=== PATIENT | female | born 1950 | race Caucasian/White ===

== ENCOUNTER 2016-12-23 21:01 | Emergency (ER) | payer MEDICARE, OTHER ==
[~2016-12-23] VITALS: Ht 157.5 cm; Wt 80.5 kg
[~2016-12-23 21:01] MED LIST: ASPI81TA2 PO; CLOP75TA14 PO; COR625 PO; GLU500 PO; NITR0.4T SL; OMEP20TA86 PO; SMV40T PO; ZES10 PO; ZLP10T PO
[2016-12-23 21:07] VITALS: BP 161/68; PULSE 81; RESP 16; O2SAT 100
[2016-12-23 21:39] LABS: BASOPHILS % (AUTO) 0.5 % (0-3); EOSINOPHILS % (AUTO) 2.3 % (0-5); MONOCYTES % (AUTO) 9.4 % (4-12); Mean Corpuscular Hemoglobin 25.2 pg (27.0-35.0); Mean Corpuscular Volume 79.2 fL (81-100); NEUTROPHILS % (AUTO) 40.7 % (40-74); Platelet Count 300 bil/L (150-400)
--- NOTE | 2016-12-23 21:44 | ED.REPORT ---
HPI-General Illness Date of Service Dec 23, 2016 ED Provider: Yasmany Lino MD Patient is a 66 year old female with a history of asthma, congestive heart failure, hypertension, hiatal hernia with GERD, and coronary artery disease with prior MA and cardiac stenting who presents to the ED complaining of increased shortness of breath that has been ongoing for some time, worse in severity over the past 2 weeks. Two weeks ago the patient had a severe asthma attack after she was exposed to horse dander at the [employer]. The patient had a similar reaction a year ago, which improved with Benadryl. Since that she patient reports a "hacking" cough and increased shortness of breath. She has an inhaler at home, which has provided her with mild relief. Patient presents to the ED tonight due to concern for congestive heart failure. The patient states that she has been experiencing dyspnea on exertion. Her states that she can walk comfortably prior to breakfast, but later in the day she is barely able to walk without becoming short of breath. The patient feels as if she is unable to take a deep breath. Patient denies a productive cough. Patient denies any chest pain, even with ambulating. The patient denies having chest pain prior to She does admit to having acid reflux. Patient denies increased swelling in her legs. Nursing Notes Stated Complaint: SOB/CHF Chief Complaint: Respiratory Distress Nursing Notes Reviewed: Yes Allergies: Coded Allergies: amoxicillin (Verified Allergy, Intermediate, Rash, 12/23/16) Cephalosporins (Verified Allergy, Unknown, Rash, 12/23/16) Sulfa (Sulfonamide Antibiotics) (Verified Allergy, Unknown, Rash, 12/23/16) codeine (Verified Adverse Reaction, Intermediate, Nausea,Vomiting, 12/23/16) Scheduled Albuterol HFA (Proair HFA) 8.5 Gm Hfa.aer.ad 2 PUFFS INHALATION Q4H Aspirin-Expunged Drug, Do Not Renew! (Aspirin-Expunged Drug, Do Not Renew!) 81 Mg Tablet 81 MG PO DAILY Carvedilol-Expunged Drug, Do Not Renew! (Carvedilol-Expunged Drug, Do Not Renew! ) 6.25 Mg Tablet 6.25 MG PO BID Clopidogrel-Expunged Drug, Do Not Renew! (Plavix-Expunged Drug, Do Not Renew!) 75 Mg Tablet 75 MG PO DAILY Lisinopril-Expunged Drug, Do Not Renew! (Lisinopril-Expunged Drug, Do Not Renew! ) 10 Mg Tablet 10 MG PO DAILY Metformin-Expunged Drug, Do Not Renew! (Metformin-Expunged Drug, Do Not Renew!) 500 Mg Tablet 500 MG PO BID Nitroglycerin-Expunged Drug, Do Not Renew! (Nitroglycerin SL-Expunged Drug, Do Not Renew!) 0.4 Mg Tab.subl 0.4 MG SL PRN Omeprazole-Expunged Drug, Do Not Renew! (Omeprazole-Expunged Drug, Do Not Renew! ) 20 Mg Tablet.dr 20 MG PO BID Prednisone (PredniSONE) 20 Mg Tablet 40 MG PO DAILY Simvastatin-Expunged Drug, Choose New Med! (Simvastatin-Expunged Drug, Choose New Med!) 40 Mg Tablet 40 MG PO HS INPATIENT MAX DOSE 40 MG Zolpidem-Expunged Drug, Do Not Renew! (Zolpidem-Expunged Drug, Do Not Renew!) 10 Mg Tab 10 MG PO HS For Elderly/Debilitated patients and hepatic insufficiency recommended dose is 5 mg. General Time Seen by MD: 21:43 Chief Complaint Breathing problem (shortness of breath) Hx Obtained From: Patient Arrived By: Walk-in Sudden in Onset?: No Onset Occurred: More than a week ago... (worse today) Symptom Duration: Waxes and wanes Severity: Current: No pain currently Severity: Maximum: No pain Recent Healthcare: No recent doctor visit, No recent hospitalization Similar Sx Previous: Yes Past Medical History Past Medical History coronary artery disease with prior MA (unknown age) and cardiac stenting (2011) hiatal hernia atrial fibrillationw with RVR Reports: Asthma, Congestive heart failure, Diabetes mellitus, GERD, Hyperlipidemia Past Surgical History cardiac stent to the LAD, 2012 breast biopsies D&C Smoking History Unknown if Ever Smoker Social History Other Social History: Good social support, , Local resident Ambulatory Status Independent Review of Systems Full Review of Systems Respiratory: Reports: Dyspnea on exertion, Non-productive cough, Shortness of breath, Denies: Prod cough, clear, Prod cough, yellow Cardiovascular: Reports: Dyspnea on exertion, Denies: Chest pain Musculoskeletal: Denies: Extremity swelling Complete sys rev & neg: except as marked. Physical Exam Vital Signs Vital Signs Date Time Temp Pulse Resp B/P Pulse Ox O2 Delivery O2 Flow Rate FiO2 12/23/16 23:09 65 14 133/44 98 Room Air 12/23/16 22:46 67 16 97 Room Air 8 12/23/16 21:07 36.7 81 16 161/68 100 Room Air Initial VS: Reviewed Head / Eyes: Atraumatic, Normocephalic, PERRL ENT: Conjunctiva normal, No scleral icterus Skin: Warm, Dry, No cyanosis Neurologic: Alert, Oriented, Nonfocal Psychiatric: Mood/affect normal, Behavior normal, Normal thought content General/Constitutional: Awake, Alert, No acute distress Neck: Supple, No JVD Respiratory / Chest: Breath sounds NL, Breath sounds = bilat, No respiratory distress, No rales, No rhonchi, No wheezing breathing at the top of her respiratory cycle, unable to get a deep breath Cardiovascular: Heart rate NL, Regular rhythm, No gallop, No murmurs, No rubs, Cap refill not delayed, Peripheral circulation NL Abdomen: Soft, Non-tender, No distention Upper Extremities Upper Extremity / MS: No swelling, No edema Lower Extremity / Pelvis / MS: No swelling, Neurologic intact, Vascular intact , No edema Interpretation & Diagnostics Lab Results Interpretation Result Diagram: 12/23/16210912/23/162109 Test 12/23/16 21:10 White Blood Count 6.0th/mm3 (3.8-10.1) Red Blood Count 4.33mil/mm3 (3.90-5.20) Hemoglobin 10.9g/dL (12.0-15.6) Hematocrit 34.3% (35.0-46.0) Mean Corpuscular Volume 79.2fL (81-100) Mean Corpuscular Hemoglobin 25.2pg (27.0-35.0) Mean Corpuscular Hemoglobin Concent 31.8% (32.0-37.0) Red Cell Distribution Width 15.6% (12.3-15.4) Platelet Count 300bil/L (150-400) Neutrophils (%) (Auto) 40.7% (40-74) Lymphocytes (%) (Auto) 46.9% (14-46) Monocytes (%) (Auto) 9.4% (4-12) Eosinophils (%) (Auto) 2.3% (0-5) Basophils (%) (Auto) 0.5% (0-3) Hold Purple Top Tube Received (Received) Hold Blue Top Tube Received (Received) Sodium Level 130mEq/L (134-144) Potassium Level 4.1mEq/L (3.5-5.2) Chloride Level 95mEq/L (97-108) Carbon Dioxide Level 23mmol/L (18-29) Blood Urea Nitrogen 16mg/dL (8-27) Creatinine 0.71mg/dL (0.57-1.00) Estimat Glomerular Filtration Rate 118mL/min (>59) Glucose Level 155mg/dL (60-99) Calcium Level 9.1mg/dL (8.5-10.1) Iron Level 34ug/dL (35-150) Total Iron Binding Capacity 349ug/dL (250-450) Percent Iron Saturation 10%sat (15-50) Unsaturated Iron Binding 314.9ug/dL Total Bilirubin 0.2mg/dL (0.0-1.2) Aspartate Amino Transf (AST/SGOT) 28U/L (0-50) Alanine Aminotransferase (ALT/SGPT) 30U/L (0-32) Alkaline Phosphatase 65U/L (25-165) Troponin T 0.010ug/L (0.0-0.011) Pro-B-Type Natriuretic Peptide 282.5pg/mL (0-301) Total Protein 8.4g/dL (6.4-8.4) Albumin 4.1g/dL (3.4-5.0) Hold Mclean Top Tube Received (Received) Hold Catherine Top Tube Received (Received) ECG Interpretation ECG Interpretation: Sinus rhythm, rate 70 old anterior wall MA Time: 21:40 Interpreted by: ED physician Normal ECG Interpretation: No acute ischemic changes X-Ray Chest Interpretation Chest Xray Interpretation: IMPRESSION: No acute disease Dictated by: Live Rivera M.D. on 12/23/2016 at 21:59 Approved by: Live Rivera M.D. on 12/23/2016 at 22:00 Interpretation / Wet Read by: Interpret - Radiologist Re-Eval/Medical Decision Med Decision/Clinical Course 66-year-old with intermittent dyspnea on exertion, present after eating and not present first thing in the morning. 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 She was positively influence by [employer] here. She has a normal B Callie, normal x-ray, no evidence of cardiac ischemia at present. I suspect this is indeed bronchospasm accounting for her symptoms. She is begun on a brief course of steroid, continued albuterol metered-dose inhaler, and plan for follow-up with PCP. Source of Hx: Old records Time of Eval: 22:58 Patient Status: Condition improved Re-Evaluation/Progress Note: Rechecked the patient, who states that she was improved with duoneb. Discussed results of labs, chest x-ray, and EKG. She is mildly anemic but no other acute problems found. Patient understands and agrees with the plan to be discharged home. Discharge instructions and follow-up discussed. All questions were addressed. Return to the ED warnings given. Counseled Regarding: Diagnosis, Lab results, Need for follow-up, When/why to return to ED Discharge & Departure Primary Impression: Asthma Asthma severity: moderate persistent Asthma complication type: uncomplicated Qualified Code: J45.40 - Moderate persistent asthma, uncomplicated Additional Impressions: Dyspnea on exertion Anemia Anemia type: unspecified type Qualified Code: D64.9 - Anemia, unspecified Disposition: Home Discharge Condition All VS Reviewed: Yes Condition: Stable Patient Instructions: Asthma (ED) Additional Instructions: We do not see evidence of congestive heart failure causing ear breathing difficulties tonight. Your exam suggests all of this is due to asthma/ bronchospasm. Continue with your allergy evaluation is planned. Take 40 mg of prednisone daily for three days beginning tomorrow. Continue your albuterol and your Advair. Follow up with your doctor also. Referrals: Fahad العلي MD (PCP) Scribe Attestation Portions of this note were transcribed by Jihan Nieves. I, Dr. Lino personally performed the history, physical exam and medical decision-making; I reviewed and confirmed the accuracy of the information in the transcribed note. Signed by: Eliseo Norman, 12/23/2016 1381 copies to: Fahad العلي MD, Christopher W MD Dec 23, 2016 21:44 Jihan Nieves Dec 23, 2016 22:01
[2016-12-23 21:50] LABS: TROPONIN T 0.01 ug/L (0.0-0.011)
--- NOTE | 2016-12-23 22:00 | DRSVH ---
PROCEDURE: X-RAY CHEST ONE VIEW, PORTABLE ([id number]) INDICATIONS: SHORT OF BREATH TECHNIQUE: One view of the chest was acquired. COMPARISON: [facility], , CHEST 1VW (PORTABLE), 02/07/2012, 18:44. FINDINGS: Surgical changes and devices: None. Lungs and pleura: No pleural effusions or pneumothorax. Lungs are clear. Mediastinum: Mediastinal contours appear normal. Heart size is normal. Bones and chest wall: No suspicious bony lesions. Overlying soft tissues appear unremarkable. IMPRESSION: No acute disease Dictated by: Live Rivera M.D. on 12/23/2016 at 21:59 Approved by: Live Rivera M.D. on 12/23/2016 at 22:00
[2016-12-23] MEDS ORDERED: Albuterol-Ipratropium 3 mL Inhalation Solution NEB ONE (22:20)
[2016-12-23 22:46] VITALS: PULSE 67; RESP 16; O2SAT 97
[2016-12-23] MEDS ORDERED: Dexamethasone 20 mg/2 mL Oral Solution PO ONE (22:55)
[2016-12-23] MEDS ORDERED: ALBU8.5H2 INHALATION (23:01)
[2016-12-23] MEDS ORDERED: PRE20 PO (23:02)
[2016-12-23 23:09] VITALS: BP 133/44; PULSE 65; RESP 14; O2SAT 98
[2016-12-23 23:31] LABS: Unsaturated Iron Binding 314.9 ug/dL
== END 2016-12-23 23:11 | disposition home or self-care (01) ==
LOC: SED 21:01
DX: J45.40 Moderate persistent asthma, uncomplicated (principal); R06.09 Other forms of dyspnea; D64.9 Anemia, unspecified; I25.2 Old myocardial infarction; I25.10 Atherosclerotic heart disease of native coronary artery without angina pectoris; I50.9 Heart failure, unspecified; E11.9 Type 2 diabetes mellitus without complications; K21.9 Gastro-esophageal reflux disease without esophagitis; E78.5 Hyperlipidemia, unspecified; Z95.818 Presence of other cardiac implants and grafts; Z79.82 Long term (current) use of aspirin; Z79.84 Long term (current) use of oral hypoglycemic drugs; Z88.0 Allergy status to penicillin; Z88.1 Allergy status to other antibiotic agents; Z88.2 Allergy status to sulfonamides; Z88.5 Allergy status to narcotic agent
CPT/HCPCS: 36415; 71010; 80053; 83540; 83550; 83880; 84484; 85025; 93005; 94640; 99285; J7620